=== PATIENT | female | born 1965 | race African-American/Black ===

== ENCOUNTER 2020-01-23 17:45 | Emergency (ER) | payer MEDICAID, OTHER ==
[~2020-01-23] VITALS: Ht 167.6 cm; Wt 121.4 kg
[~2020-01-23 17:45] MED LIST: CIPR-278 PO
[2020-01-23] MEDS ORDERED: GABA-529 PO (17:56)
[2020-01-23] MEDS ORDERED: ACET-66 PO (17:56)
[2020-01-23] MEDS ORDERED: CEPHALEXIN MONOHYDRATE 500 MG CAPSULE PO ONE (18:30)
[2020-01-23] MEDS ORDERED: IBUPROFEN 600 MG TABLET PO ONE (18:30)
[2020-01-23] MEDS ORDERED: LIDOCAINE 1% 10 ML VIAL INJ ONE (18:30)
[2020-01-23 19:27] VITALS: BP 145/88
== END 2020-01-23 19:31 | disposition home or self-care (01) ==
LOC: EMS 17:47
DX: L03.011 Cellulitis of right finger (principal); F31.9 Bipolar disorder, unspecified; J45.909 Unspecified asthma, uncomplicated; Z79.899 Other long term (current) drug therapy
CPT/HCPCS: 10060; 99283; J3490